=== PATIENT | female | born 1960 | race Caucasian/White ===

== ENCOUNTER 2022-12-07 18:02 | Inpatient (IN) | payer OTHER ==
[~2022-12-07] VITALS: Ht 160 cm; Wt 59.9 kg
[2022-12-07 18:03] VITALS: BP 105/42
--- NOTE | 2022-12-07 18:30 | NUR ---
EMERGENCY TRANSFUSION STARTED WITH O NEG, INFUSING ON LEFT AC.
[2022-12-07 18:34] LABS: BASOPHILS % (AUTO) 0.4 % (0.0-2.0); EOSINOPHILS # (AUTO) 0.3 K/uL (0-0.4); HEMATOCRIT 20.2 % (36-48); LYMPHOCYTES # (AUTO) 2.5 K/uL (2.5-16.5); LYMPHOCYTES % (AUTO) 19.5 % (20.5-51.1); MEAN CORPUSCULAR HEMOGLOBIN 27 pg (27-31); MEAN CORPUSCULAR HGB CONC 34 g/dL (33-37); MONOCYTES # (AUTO) 1.3 K/uL (0.8-1.0); NEUTROPHILS # (AUTO) 8.8 K/uL (1.8-7.7); NEUTROPHILS % (AUTO) 68.1 % (42.2-75.2); PLATELET COUNT (AUTO) 387 K/uL (140-450); RED BLOOD CELL COUNT(AUTO) 2.56 MIL/uL (4.20-5.40); RED CELL DISTRIBUTION WIDTH 23.7 % (11.6-13.7)
[2022-12-07 18:36] LABS: HEMOGLOBIN 6.9 g/dL (12.0-16.0)
--- NOTE | 2022-12-07 18:39 | NUR ---
XRAY AT BEDSIDE
[2022-12-07 18:59] LABS: PROTHROMBIN TIME 10.5 secs (10.8-13.4)
[2022-12-07 19:01] LABS: ANION GAP 12.1 (8-16); CARBON DIOXIDE 31.2 mmol/L (21-32); CREATININE 1.2 mg/dL (0.6-1.3); POTASSIUM 5.3 mmol/L (3.5-5.1); TOTAL BILIRUBIN 0.2 mg/dL (0.0-1.0)
--- NOTE | 2022-12-07 19:15 | NUR ---
BLOOD TRANSFUSION 1 UNIT COMPLETED, STARTED SECOND UNIT, ENDORSED WITH RAIMUNDO ASH
[2022-12-07] MEDS: PANTOPRAZOLE 80 MG in NACL 0.9% 100 ML IVP SCH (20:00)
--- NOTE | 2022-12-07 20:10 | NUR ---
HAD 1 LARGE LIQUID BURGUNDY COLORED STOOL. CLEANSED, RAVEN CAR GIVEN LINENS CHANGED
[2022-12-07] MEDS ORDERED: PANTOPRAZOLE 40 MG INJ VIAL ONE (20:55)
--- NOTE | 2022-12-07 22:00 | NUR ---
RESTING QUIETLY, NO FURTHER STOOL
--- NOTE | 2022-12-08 | NUR ---
RESTING COMFORTABLY WITH EYES CLOSED, RESPIRATIONS REGULAR AND UNLABORED3
--- NOTE | 2022-12-08 02:00 | NUR ---
NO CHANGE IN PT CONDITION, REPOSITIONED FOR COMFORT
[2022-12-08] MEDS ORDERED: DIVA125E1 (03:04)
[2022-12-08] MEDS ORDERED: ALBU0.0912 IH (03:04)
[2022-12-08] MEDS ORDERED: ACET-10509 PO (03:04)
[2022-12-08] MEDS ORDERED: CLOZ100T PO (03:04)
[2022-12-08] MEDS ORDERED: ATOR10TA PO (03:04)
[2022-12-08] MEDS ORDERED: CALC500C17 PO (03:04)
[2022-12-08] MEDS ORDERED: FURO-570 PO (03:06)
[2022-12-08] MEDS ORDERED: PANT40EC PO (03:08)
[2022-12-08] MEDS ORDERED: QUET200T PO (03:13)
--- NOTE | 2022-12-08 04:00 | NUR ---
AWAKE, REPOSITIONED FOR COMFORT.
[2022-12-08] MEDS ORDERED: PANTOPRAZOLE 40 MG INJ VIAL ONE (05:45)
[2022-12-08] MEDS: PANTOPRAZOLE 80 MG in NACL 0.9% 100 ML IVP SCH (05:51)
--- NOTE | 2022-12-08 06:00 | NUR ---
AWAKE AND REPOSITIONED FOR COMFORT
--- NOTE | 2022-12-08 07:23 | NUR ---
REPORT TO MIHIR ANSARI
[2022-12-08 08:14] LABS: BASOPHILS # (AUTO) 0.1 K/uL (0.00-0.22); BASOPHILS % (AUTO) 0.5 % (0.0-2.0); EOSINOPHILS # (AUTO) 0.5 K/uL (0-0.4); EOSINOPHILS % (AUTO) 4.2 % (0.0-4.0); HEMATOCRIT 25.9 % (36-48); LYMPHOCYTES # (AUTO) 2.3 K/uL (2.5-16.5); LYMPHOCYTES % (AUTO) 19.6 % (20.5-51.1); MEAN CORPUSCULAR HEMOGLOBIN 28 pg (27-31); MEAN CORPUSCULAR HGB CONC 35 g/dL (33-37); MEAN CORPUSCULAR VOLUME 81.1 fL (80-94); MONOCYTES # (AUTO) 1.7 K/uL (0.8-1.0); MONOCYTES % (AUTO) 14.3 % (1.7-9.3); NEUTROPHILS # (AUTO) 7.3 K/uL (1.8-7.7); NEUTROPHILS % (AUTO) 61.4 % (42.2-75.2); PLATELET COUNT (AUTO) 364 K/uL (140-450); RED BLOOD CELL COUNT(AUTO) 3.19 MIL/uL (4.20-5.40); RED CELL DISTRIBUTION WIDTH 19.6 % (11.6-13.7); WHITE BLOOD COUNT (AUTO) 11.9 K/uL (4.8-10.8)
[2022-12-08 08:40] LABS: ANION GAP 13.4 (8-16); CARBON DIOXIDE 29.6 mmol/L (21-32)
--- NOTE | 2022-12-08 09:09 | NUR ---
PATIENT HAS BEEN SCREENED AND CATEGORIZED MODERATE NUTRITION RISK. PATIENT WILL BE SEEN WITHIN 3-5 DAYS OF ADMISSION. REVIEWED BY FRANK MIRANDA RD
[2022-12-08] MEDS: DEXT 5% /NACL 0.9% 1,000 ML IV SCH (12:23)
[2022-12-08] MEDS ORDERED: diphenhydrAMINE 50 MG/ML VIAL ONE (12:51)
[2022-12-08] MEDS ORDERED: MIDAZOLAM 2 MG/2 ML VIAL ONE (12:52)
[2022-12-08] MEDS ORDERED: fentaNYL citrate 0.05 MG/ML VIAL ONE (12:52)
--- NOTE | 2022-12-08 12:57 | NUR ---
OR TEAM AT BEDSIDE.
--- NOTE | 2022-12-08 13:02 | NUR ---
Dawit antonio in [facility] - 12/08/22 at 1303 by [email or web address] PT TAKEN TO OR AT THIS TIME, TRANSFER OF CARE.
--- NOTE | 2022-12-08 13:02 | NUR ---
Pt report given to OR. Transfer of care at this time.
[2022-12-08] MEDS ORDERED: POTASSIUM CHLORIDE 10 MEQ TABER PO PRN (13:30)
[2022-12-08] MEDS ORDERED: NACL 0.9% 1,000 ML IV SCH (13:30)
[2022-12-08] MEDS ORDERED: MAG SULF 2000 MG/WATER PREMIX 50 ML IV PRN (13:30)
[2022-12-08] MEDS ORDERED: ONDANSETRON 4 MG/2 ML VIAL IVP PRN (13:30)
[2022-12-08] MEDS ORDERED: ACETAMINOPHEN 325 MG TAB PO PRN (13:30)
[2022-12-08] MEDS ORDERED: MIDAZOLAM 2 MG/2 ML VIAL IVP ONE (13:45)
[2022-12-08] MEDS ORDERED: fentaNYL citrate 0.05 MG/ML VIAL IVP ONE (13:45)
--- NOTE | 2022-12-08 15:30 | NUR ---
RECEIVED REPORT FROM OR NURSE. PT STABLE AN TRANSPORT. PT IS A&OX2-3, HAS A WOUND ON HER SACRUM, IN A T-BAR WITH 2L O2, LUNG SOUNDS HAVE CRACKLES. SHE IS BEDBOUND. HAS AN IV IN HER 20G R HAND INFUSING D5/NS AT 50ML/HR AND A 20G IN HER LAC THAT IS SALINE LOCKED. ALL SAFETY MEASURES IN PLACE AND WILL CONTINUE TO MONITOR.
[2022-12-08 15:34] LABS: PROTHROMBIN TIME 10.6 secs (10.8-13.4)
[2022-12-08 15:54] LABS: CHOL/HDL RATIO 4.4 (1-4.5); FREE T4 (FREE THYROXINE) 0.67 ng/dL (0.76-1.46); THYROID STIMULATING HORMONE 39.91 uIU/mL (0.34-3.74)
[2022-12-08 16:00] VITALS: BP 101/41
--- NOTE | 2022-12-08 16:00 | NUR ---
CALLED ER TO GET REPORT ON THE PATIENT AND NURSE WAS BUSY. I WAS TOLD THEY WOULD CALL ME BACK. NEVER RECEIVED A CALL.
--- NOTE | 2022-12-08 16:34 | NUR ---
DC PLANNING SW OUTREACHED TO [facility] TO GATHER COLLATERAL INFORMATION. SPOKE WITH ZEHRA, ADMIN MARGAUX. ZEHRA REPORTS PT IS IN SUBACUTE CARE WITH CO, ADMISSION DATE; 10/07/22. PT ADMITTED FROM [facility]. ZEHRA REPORTS PT UNABLE TO MAKE DECISIONS AND REPORTS CO [employer] COMMITTEE MAKES MEDICAL DECISIONS ON BEHALF OF PT. ZEHRA REPORTS NO KNOWN FAMILY INVOLVEMENT, AND REPORTS PT IS NOT REGIONAL CENTER CONNECTED. PT IS REPORTED TO TOTAL CARE AND PRIMARILY BEDBOUND AT FACILITY. PT IS REPORTED TO HAVE MENTAL HEALTH HX OF SCHIZOPHRENIA AND IS FOLLOWED BY DR. MORENO, ONCE A MONTH. ZEHRA REPORTS PT IS FOLLOWED DR. ABDI AND FRACTIONATION PLANT SUPERVISOR, DR. QUIROZ AT FACILITY. ZEHRA REPORTS DC PLAN IS FOR PT TO RETURN TO [facility], WHEN MEDICALLY STABLE. Addendum: 12/08/22 at 1635 by Arnold ROGERS Amended: Links added.
[2022-12-08 17:14] LABS: BILIRUBIN,URINE NEGATIVE (NEGATIVE); BLOOD, URINE NEGATIVE (NEGATIVE); COLOR,URINE YELLOW (YELLOW); LEUKOCYTE ESTERASE ,URINE 1+ (NEGATIVE); NITRITE, URINE POSITIVE (NEGATIVE); PH,URINE 5.5 (5.0-9.0); UGLUCOSE NEGATIVE (NEGATIVE)
[2022-12-08] MEDS: SENNA 8.6 MG TAB PO SCH (17:37)
[2022-12-08] MEDS: POLYETHYLENE GLYCOL 17 GM/PKT PO SCH ×2 (17:37→20:37)
[2022-12-08] MEDS: LACTULOSE 20 GM/30 ML UDC PO SCH ×2 (17:37→20:37)
[2022-12-08 18:02] LABS: BARBITURATE, URINE NEGATIVE ng/ml (NEG <=200); BENZODIAZEPINE, URINE NEGATIVE ng/mL (NEG <=200); CANNABINOID, URINE NEGATIVE ng/mL (NEG <=50); COCAINE, URINE NEGATIVE ng/mL (NEG <=300); OPIATE, URINE NEGATIVE ng/mL (NEG <=2000); PHENCYCLIDINE SCREEN,URINE NEGATIVE ng/mL (NEG <=25)
[2022-12-08 18:03] LABS: APPEARANCE,URINE HAZY (CLEAR)
[2022-12-08 19:12] LABS: RBC,URINE NONE SEEN /HPF (0-5); WBC,URINE 20-60 /HPF (0-5)
--- NOTE | 2022-12-08 19:15 | NUR ---
ENDORSED PT TO LIVE OUT NANNY NURSE STEVENSON FOR CONTINUITY OF CARE. PT STABLE.
--- NOTE | 2022-12-08 19:20 | NUR ---
RECEIVED REPORT FROM AM RN. PATIENT IS ASLEEP, OPENS EYES UPON VERBAL STIMULI. DENIES PAIN. NO S/SX OF ACUTE RESPIRATORY DISTRESS NOTED. G-TUBE IN PLACE, VERIFIED PLACEMENT VIA AUSCULTATION, NO RESIDUAL NOTED. SKIN WARM AND DRY TO TOUCH. IVF INFUSING ORDERED. BED IN THE LOWEST AND LOCKED POSITION FOR SAFETY, CALL LIGHT IN REACH.
[2022-12-08 20:00] VITALS: BP 129/57
--- NOTE | 2022-12-08 20:37 | NUR ---
G TUBE FEEDING OF JEVITY 1.2 200 ML BOLUS GIVEN ORDERED. DUE MEDICATIONS GIVEN. HEAD OF THE BED ELEVATED.
[2022-12-08] MEDS ORDERED: DOCUSATE SODIUM 100 MG GELCAP PO SCH (21:00)
--- NOTE | 2022-12-08 21:39 | NUR ---
SPOKE WITH JOE MARINE TECHNICIAN FROM [facility] TO ASK NEXT OF KIN OR ANYONE AUTHORIZED TO GIVE CONSENT FOR A PROCEDURE. PER JOE, NO INFORMATION AND TO CALL BACK IN AM AND LOOK FOR [facility].
--- NOTE | 2022-12-08 21:45 | NUR ---
REPOSITIONED PT, MADE COMFORTABLE IN BED.
[2022-12-09] VITALS: BP 118/55
--- NOTE | 2022-12-09 00:58 | NUR ---
PATIENT HAD A LARGE WATERY BLOODY STOOL, CLEANED PATIENT. REPOSITIONED FOR COMFORT. TRACH AND ORAL SUCTIONING DONE, ORAL CARE RENDERED.
--- NOTE | 2022-12-09 02:00 | NUR ---
REPOSITIONED PT. MADE COMFORTABLE, HEAD OF THE BED.
[2022-12-09 04:00] VITALS: BP 107/43
--- NOTE | 2022-12-09 04:00 | NUR ---
VITAL SIGNS TAKEN AND DOCUMENTED. NO S/SX OF PAIN NOR DISCOMFORT.
[2022-12-09 05:45] LABS: BASOPHILS # (AUTO) 0.1 K/uL (0.00-0.22); BASOPHILS % (AUTO) 0.7 % (0.0-2.0); EOSINOPHILS # (AUTO) 0.9 K/uL (0-0.4); EOSINOPHILS % (AUTO) 8.3 % (0.0-4.0); HEMATOCRIT 25.6 % (36-48); HEMOGLOBIN 8.9 g/dL (12.0-16.0); LYMPHOCYTES # (AUTO) 1.7 K/uL (2.5-16.5); LYMPHOCYTES % (AUTO) 16.2 % (20.5-51.1); MEAN CORPUSCULAR HEMOGLOBIN 28 pg (27-31); MEAN CORPUSCULAR HGB CONC 35 g/dL (33-37); MEAN CORPUSCULAR VOLUME 81.8 fL (80-94); MONOCYTES # (AUTO) 1.4 K/uL (0.8-1.0); MONOCYTES % (AUTO) 13.4 % (1.7-9.3); NEUTROPHILS # (AUTO) 6.6 K/uL (1.8-7.7); NEUTROPHILS % (AUTO) 61.4 % (42.2-75.2); PLATELET COUNT (AUTO) 392 K/uL (140-450); RED BLOOD CELL COUNT(AUTO) 3.13 MIL/uL (4.20-5.40); RED CELL DISTRIBUTION WIDTH 19.6 % (11.6-13.7); WHITE BLOOD COUNT (AUTO) 10.7 K/uL (4.8-10.8)
--- NOTE | 2022-12-09 06:14 | NUR ---
PATIENT IS ASLEEP. NO DISTRESS NOTED. ALL NEEDS ATTENDED TO. SAFETY PRECAUTIONS MAINTAINED DURING THE SHIFT, CALL LIGHT REMAINS WITHIN REACH.
[2022-12-09 06:38] LABS: ANION GAP 11.7 (8-16); CARBON DIOXIDE 31.8 mmol/L (21-32); CREATININE 0.9 mg/dL (0.6-1.3); POTASSIUM 3.5 mmol/L (3.5-5.1)
[2022-12-09 07:20] LABS: MAGNESIUM 2.4 mg/dL (1.8-2.4); PHOSPHORUS 3.7 mg/dL (2.5-4.9)
[2022-12-09 08:00] VITALS: BP 131/58
[2022-12-09] MEDS ORDERED: PANTOPRAZOLE 40 MG INJ VIAL IVP SCH (09:00)
[2022-12-09] MEDS ORDERED: DOCUSATE 100 MG/10 ML UDC GT SCH (09:00)
[2022-12-09] MEDS: POLYETHYLENE GLYCOL 17 GM/PKT PO SCH ×2 (09:38→13:00)
[2022-12-09] MEDS: LACTULOSE 20 GM/30 ML UDC PO SCH ×3 (09:38→14:00)
[2022-12-09] MEDS: SENNA 8.6 MG TAB PO SCH ×2 (09:38→13:00)
[2022-12-09] MEDS: HYDROcodone/APAP 7.5/325 MG 1 TAB PO PRN ×2 (09:39→22:35)
--- NOTE | 2022-12-09 10:05 | NUR ---
SKIN ASSESSMENT DONE ON THIS 62 Y/O PT. WITH A HISTORY OF CHRONIC RESPIRATORY FAILURE WITH TRACH, DIABETES, SCHIZOPHRENIA. PT. ADMIITED WITH INITIAL DX OF GI BLEED AND HYPOTENSION. PT. ADMITTED WIYH MULTIPLE PRESSURE INJURIES. SKIN IS WARM AND MOIST, BILATERAL LOWER EXTREMITY +2 EDEMA. DORSAL PEDAL PULSES PRESENT AND NORMAL. INCONTINENT BOWEL AND BLADDER, LARGE AMOUNT BLOODY STOOL OUT PUT OBSERVED. PRIMARY RN MADE AWARE OF. WOUND CARE POC DISCUSSED WITH PRIMARY RN. INFORM TO DR. OLGUIN RECOMMENDATION FOR SACRAL DEBRIDEMENT. INTEGUMENTARY: -ORAL MEMBRANE PINK INTACT -TRACH SITE RAVEN STOMA SKIN DRY AND CLEAN. SKIN INTACT. -PRESSURE INJURY STAGE 2 3X4CM SUPERFICIAL DEPTH, WOUND BED 100% PINK, DRY, NO ODOR, RAVEN WOUND SKIN INTACT, HAIRLY -PRESSURE INJURY UN-STAGEABLE SACRALCOCCYX INFECTED WOUND, WOUND BED [id number] 100% YELLOW, BROWN SLOUGH TISSUE, TUNNEL 2CM DEEP ODOR, RAVEN WOUND SKIN WITH KIN, SURROUNDING NON-BLANCHABLE REDNESS INDICATED FURTHER DAMAGE -PRESSURE INJURY UN-STAGEABLE TO RIGHT HEEL 1.5X1CM 100% BLACK ESCHAR TISSUE, RAVEN WOUND CKIN NON-BLANCHABLE REDNESS, MUSHY, FURTHER DAMAGE INDICATED -RIGHT WRIST SKIN TEAR 0.5X1CM SUPERFICIAL DEPTH, MOIST, NO ODOR, RAVEN-WOUND SKIN DRY INTACT. RECOMMENDATIONS: -WOUND CX TO SACRALCOCCYX -SURGEON CONSULT FOR SACRAL DEBRIDEMENT -CLEANSE SACRALCOCCYX WOUND WITH NS, PAT DRY, APPLY THERAHONEY GEL WITH OL EMULSION DRESSING PACK FROM TUNNEL WOUND AND COVER TO WOUND BED, APPLY Z GUARD TO RAVEN-WOUND SKIN AND COVER WITH ABD PAD AND SECURE WITH TAPE CHANGE DAILY AND PRN IF SOILING -APPLY HYDROCOLLOID DRESSING TO OCCIPITAL Q3D AND PRN IF SOILING -RIGHT HEEL WOUND PAINT WITH BETADINE SOLUTION BID AND ROMIE, APPLY HEEL PROTECTOR WITH OFFLOADING -APPLY STERISTRIP TO RIGHT WRIST SKIN TEAR ROMIE -POSITIONING: TURN AND REPOSITION PATIENT Q 2H OR SOONER USE PILLOWS TO KEEP BONY PROMINENCES FROM DIRECT CONTACT WITH SURFACES USE REPOSITIONING WEDGES TO PROVIDE 30-DEGREE ANGLE FOR SIDE LYING POSITIONS OFFLOADING OR FOAM DRESSING TO ALL TUBING TO PREVENT MEDICAL DEVICES RELATED PRESSURE INJURY -RE-EVALUATING AND MANAGING INCONTINENCE MONITOR SKIN CONDITION DURING POSITION CHANGE DO NOT MASSAGE REDNESS, BONY PROMINENCES FREQUENT RAVEN-CARE AND PROVIDE BARRIER CREAMS PRN IF SOILING MOISTURE CONTROL BY OFFER BED BUSCH/URINAL /ABSORBENT PAD TO WICK AND HOLD MOISTURE KEEP SKIN DRY AND PROTECT FROM FRICTION -MANAGE FRICTION/SHEAR/MOBILITY KEEP HOB AT THE LOWEST LEVEL OF ELEVATION NO MORE THAN 30-DEGREE UNLESS OTHERWISE CONTRAINDICATED USE LIFT SHEET OR TRANSFER DEVICE TO MOVE PATIENT AND PREVENT LATERAL SHEER. PROTECT HEELS, ELBOWS BONY PROMINENCES WITH SKIN BERRIES OR FOAM DRESSING IF EXPOSED TO FRICTION OFFLOAD BILATERAL HEELS BY PLACING PILLOWS UNDER CALVES AT ALL TIMES, UNLESS OTHERWISE CONTRAINDICATED -PRESSURE REDISTRIBUTION SURFACE THERAPY EDUARDO MATTRESS -NUTRITION: PLEASE FOLLOW RD RECOMMENDATIONS AND OFFER NUTRITION SUPPLEMENTS IF ORDERED.
[2022-12-09] MEDS ORDERED: HYDROCOLLOID DRESSING TP PRN (11:55)
[2022-12-09] MEDS ORDERED: THERAHONEY GEL 42.5 GM TP PRN (11:55)
[2022-12-09 12:00] VITALS: BP 101/59
[2022-12-09] MEDS: GAUZE TP SCH (13:00)
[2022-12-09] MEDS: THERAHONEY GEL 42.5 GM TP SCH (13:00)
[2022-12-09] MEDS: HYDROCOLLOID DRESSING TP SCH (13:00)
--- NOTE | 2022-12-09 13:00 | NUR ---
PATIENT WAS TAKEN TO OR FOR COLONOSCOPY ACCOMPANIED BY OR STAFF AND RT.
[2022-12-09] MEDS ORDERED: fentaNYL citrate 0.05 MG/ML VIAL ONE (13:18)
[2022-12-09] MEDS ORDERED: diphenhydrAMINE 50 MG/ML VIAL ONE (13:18)
[2022-12-09] MEDS ORDERED: MIDAZOLAM 2 MG/2 ML VIAL ONE (13:18)
[2022-12-09] MEDS: DEXT 5% /NACL 0.9% 1,000 ML IV SCH (14:00)
--- NOTE | 2022-12-09 14:00 | NUR ---
[facility] BACK [facility].
[2022-12-09] MEDS ORDERED: MIDAZOLAM 2 MG/2 ML VIAL IVP ONE (14:05)
[2022-12-09] MEDS ORDERED: fentaNYL citrate 0.05 MG/ML VIAL IVP ONE (14:05)
[2022-12-09] MEDS ORDERED: POTASSIUM CHLORIDE 20% 40 MEQ/15 ML UDC GT SCH (14:30)
[2022-12-09 16:00] VITALS: BP 127/60
[2022-12-09] MEDS: FERROUS GLUCONATE 324 MG TAB PO SCH (16:27)
--- NOTE | 2022-12-09 19:30 | NUR ---
RECEIVED PT IN BED WITH EYES CLOSED. NO S/SX OF PAIN NOR DISCOMFORT. NO S/SX OF ACUTE RESPIRATORY DISTRESS NOTED. SKIN WARM AND DRY TO TOUCH. G-TUBE PLACEMENT VERIFIED VIA AUSCULTATION, NO RESIDUAL, HEAD OF THE BED ELEVATED. SAFETY. ETIENNE CATHETER DRAINIGN YELLOW URINE BY GRAVITY. SAFETY PRECAUTION IN PLACE, CALL LIGHT IN REACH.
[2022-12-09 20:00] VITALS: BP 122/52
--- NOTE | 2022-12-09 22:06 | NUR ---
REPOSITIONED PT. HEAD OF THE BED ELEVATED.
[2022-12-10] VITALS: BP 117/45
--- NOTE | 2022-12-10 00:10 | NUR ---
NO RESIDAUL FROM G TUBE, HEAD OF THE BED ELEVATED. REPOSITIONED PT.
[2022-12-10] MEDS: GAUZE TP SCH ×2 (01:38→13:09)
--- NOTE | 2022-12-10 02:14 | NUR ---
ROUNDING DONE. PT ASLEEP. NO S/SX OF PAIN NOR DISCOMFORT. CALL LIGHT IN REACH.
[2022-12-10 04:00] VITALS: BP 122/52
[2022-12-10] MEDS: DEXT 5% /NACL 0.9% 1,000 ML IV SCH (04:34)
[2022-12-10] MEDS: LEVOTHYROXINE 0.1 MG TAB PO SCH (05:32)
[2022-12-10 05:35] LABS: BASOPHILS # (AUTO) 0.1 K/uL (0.00-0.22); BASOPHILS % (AUTO) 0.5 % (0.0-2.0); EOSINOPHILS # (AUTO) 0.9 K/uL (0-0.4); EOSINOPHILS % (AUTO) 8.4 % (0.0-4.0); HEMATOCRIT 24.8 % (36-48); HEMOGLOBIN 8.3 g/dL (12.0-16.0); MEAN CORPUSCULAR HEMOGLOBIN 28 pg (27-31); MEAN CORPUSCULAR HGB CONC 34 g/dL (33-37); MEAN CORPUSCULAR VOLUME 83.1 fL (80-94); MONOCYTES # (AUTO) 1.6 K/uL (0.8-1.0); NEUTROPHILS # (AUTO) 6.6 K/uL (1.8-7.7); NEUTROPHILS % (AUTO) 59.1 % (42.2-75.2); PLATELET COUNT (AUTO) 421 K/uL (140-450); RED BLOOD CELL COUNT(AUTO) 2.98 MIL/uL (4.20-5.40); WHITE BLOOD COUNT (AUTO) 11.2 K/uL (4.8-10.8)
[2022-12-10 06:12] LABS: MAGNESIUM 1.9 mg/dL (1.8-2.4); PHOSPHORUS 3.3 mg/dL (2.5-4.9)
[2022-12-10 06:16] LABS: ANION GAP 9.4 (8-16); CREATININE 0.9 mg/dL (0.6-1.3); POTASSIUM 3.4 mmol/L (3.5-5.1)
--- NOTE | 2022-12-10 06:24 | NUR ---
PATIENT IS ASLEEP. ALL NEEDS ATTENDED TO. NO S/SX OF DISTRESS NOTED. SAFETY PRECAUTIONS IN PLACE, CALL LIGHT IN REACH.
[2022-12-10 08:00] VITALS: BP 124/39
[2022-12-10] MEDS: LACTULOSE 20 GM/30 ML UDC PO SCH (08:42)
[2022-12-10] MEDS: FERROUS GLUCONATE 324 MG TAB PO SCH ×2 (08:42→18:15)
[2022-12-10 12:00] VITALS: BP 127/40
[2022-12-10] MEDS ORDERED: POTASSIUM CHLORIDE 20% 40 MEQ/15 ML UDC GT PRN (12:50)
[2022-12-10] MEDS: THERAHONEY GEL 42.5 GM TP SCH (13:09)
[2022-12-10 16:00] VITALS: BP 115/36
--- NOTE | 2022-12-10 16:47 | NUR ---
12/10/22 RD INITIAL ASSESSMENT COMPLETED PLEASE REFER TO NUTRITION ASSESSMENT UNDER CARE ACTIVITY FOR ESTIMATED NUTRITIONAL NEEDS. 1. RECOMMEND GLUCERNA 1.2 @ 35 ML/HR, FWF 100 ML Q4H -START AT 10 ML, AND INCREASE BY 10 ML Q4H UNTIL GOAL RATE IS REACHED, TOLERATED 2. RECOMMEND ADDING PROSOURCE BID (PROVIDES 120 KCAL AND 30 GRAM PROTEIN DAILY) - WITH PROSOURCE BID, PT WILL RECEIVE 1128 KCAL, 80 G PROTEIN, AND 1276 ML FREE WATER, AND WILL MEET 86% ESTIMATED ENERGY NEEDS AND 100% ESTIMATED PROTEIN NEEDS. 3. RD TO FOLLOW-UP 3-5 DAYS, MODERATE RISK REVIEWED BY FRANK MIRANDA RD
[2022-12-10] MEDS: HYDROcodone/APAP 7.5/325 MG 1 TAB PO PRN (18:26)
--- NOTE | 2022-12-10 19:15 | NUR ---
RECEIVED REPORT FROM DAY NURSE. PT LYING SUPINBE IN BED, ETIENNE CATHETER DRAINING YELLOW URINE, PT ON G-TUBE, JEVITY 1.2 RUNNING AT 30/HR. RESPIRATIONS EVEN AND UNLABORED, PT APPEARED STABLE IN NO APPARENT DISTRESS. WILL CONT TO MONITOR.
--- NOTE | 2022-12-10 20:45 | NUR ---
PT SEEN BY MD DR CARTER, ORDERED NPO AFTER MIDNIGHT, PT TO GO TO OR TOMORROW MORNING FOR DEBRIDEMENT SACROCOCCYX DECUBITUS GANGRENE INFECTED WOUND. CONSENT TO BE OBTAINED IN AM FROM CONSERVATOR.
--- NOTE | 2022-12-10 22:35 | NUR ---
RECEIVED CALL FROM DR RUTH STEARNS, GAVE TELEPHONE ORDER FOR ECHOCARDIOGRAM, CBC, CMP IN THE MORNING. ORDER NOTED AND CARRIED OUT. WILL CONT TO MONITOR.
[2022-12-10 23:24] VITALS: BP 115/40
[2022-12-11] MEDS: DEXT 5% /NACL 0.9% 1,000 ML IV SCH (00:53)
[2022-12-11] MEDS: GAUZE TP SCH ×2 (01:15→13:00)
[2022-12-11 05:21] VITALS: BP 145/66
[2022-12-11] MEDS: LEVOTHYROXINE 0.1 MG TAB PO SCH (05:54)
[2022-12-11 06:08] LABS: HEMATOCRIT 22.1 % (36-48); HEMOGLOBIN 7.3 g/dL (12.0-16.0); MEAN CORPUSCULAR HEMOGLOBIN 28 pg (27-31); MEAN CORPUSCULAR HGB CONC 33 g/dL (33-37); MEAN CORPUSCULAR VOLUME 82.8 fL (80-94); PLATELET COUNT (AUTO) 465 K/uL (140-450); RED BLOOD CELL COUNT(AUTO) 2.67 MIL/uL (4.20-5.40); RED CELL DISTRIBUTION WIDTH 20.2 % (11.6-13.7); WHITE BLOOD COUNT (AUTO) 11.2 K/uL (4.8-10.8)
--- NOTE | 2022-12-11 06:44 | NUR ---
PT CLEANED UP, GIVEN AM CARE, GIVEN DRESSING CHANGE AND REPOSITIONED.
[2022-12-11 07:05] LABS: ALBUMIN 1.8 g/dL (3.4-5.0); ANION GAP 11.1 (8-16); CARBON DIOXIDE 26.7 mmol/L (21-32); CREATININE 0.8 mg/dL (0.6-1.3); POTASSIUM 3.8 mmol/L (3.5-5.1); TOTAL BILIRUBIN 0.2 mg/dL (0.0-1.0)
--- NOTE | 2022-12-11 07:05 | NUR ---
END OF SHIFT REPORT GIVEN TO DAY NURSE FOR CONTINUITY OF CARE. PT STABLE AND SLEEPING.
--- NOTE | 2022-12-11 07:23 | NUR ---
got report from night nurse pt is sleeping, no sob.[email or web address]
[2022-12-11 07:30] LABS: MAGNESIUM 1.7 mg/dL (1.8-2.4); PHOSPHORUS 3.5 mg/dL (2.5-4.9)
[2022-12-11 08:00] VITALS: BP 133/58
[2022-12-11] MEDS: LACTULOSE 20 GM/30 ML UDC PO SCH (08:42)
[2022-12-11] MEDS: FERROUS GLUCONATE 324 MG TAB PO SCH ×2 (08:52→17:00)
[2022-12-11 09:20] LABS: BASOPHILS # (AUTO) 0.1 K/uL (0.00-0.22); BASOPHILS % (AUTO) 0.8 % (0.0-2.0); BASOPHILS % (MANUAL) 0 % (0-2); EOSINOPHILS # (AUTO) 0.4 K/uL (0-0.4); EOSINOPHILS % (AUTO) 3.8 % (0.0-4.0); EOSINOPHILS % (MANUAL) 2 % (0-4); LYMPHOCYTES % (AUTO) 26.6 % (20.5-51.1); LYMPHOCYTES % (MANUAL) 20 % (20-46); MONOCYTES # (AUTO) 1.5 K/uL (0.8-1.0); MONOCYTES % (AUTO) 13.4 % (1.7-9.3); MONOCYTES % (MANUAL) 10 % (5-12); NEUTROPHILS # (AUTO) 6.2 K/uL (1.8-7.7); NEUTROPHILS % (AUTO) 55.4 % (42.2-75.2); PLATELET COUNT,MANUAL 465 K/uL (150-450)
[2022-12-11 12:00] VITALS: BP 137/56
[2022-12-11] MEDS: THERAHONEY GEL 42.5 GM TP SCH (13:00)
[2022-12-11] MEDS ORDERED: LIDOCAINE MPF 1% 10 ML ONE (14:29)
[2022-12-11] MEDS ORDERED: LIDOCAINE MPF 1% 5 ML ONE (14:30)
[2022-12-11 16:00] VITALS: BP 161/61
--- NOTE | 2022-12-11 17:58 | NUR ---
HELD IRON C\0 SURGERY AT BED SIDE, PT SWEATY CLEANED REPOSITIONED FOR COMFORT. SUCTIONED.[email or web address]
--- NOTE | 2022-12-11 19:15 | NUR ---
RECEIVED REPORT FROM OUTGOING DAY NURSE. PT IN BED RESTING, PREPS FOR DEBRIDEMENT OF SACRAL WOUND IN PLACE. PT STILL NPO, IV FLUIDS RUNNING WHILE G-TUBE FEEDING ON HOLD. YELLOW URINE DRAING FROM ETIENNE CATHETER. PT APPEARED RELAX AND IN NO APPARENT DISTRESS AT THIS TIME.
--- NOTE | 2022-12-11 21:00 | NUR ---
RECEIVED REPORT PT IS NPO FROM DAY NURSE DUE TO PENDING PROCEDURE. PROCEDURE POSTPONED TO WEDNESDAY. PT RESTARTED G-TUBE FEEDING, GLUCERNA 1.2, PT G-TUBE FLUSHED AND STARTED AT 30/HR.
--- NOTE | 2022-12-11 23:00 | NUR ---
NOTED PT IV LINE LEAKING. RE INSERTED G 20 AT LH, IV INFUSING IV FLUIDS. PT REPOSITIONED, GIVEN RAVEN CARE. WILL CONT MONITORING.
[2022-12-12 02:36] VITALS: BP 133/62
[2022-12-12] MEDS: GAUZE TP SCH ×2 (03:29→13:46)
[2022-12-12 06:12] LABS: BASOPHILS # (AUTO) 0.1 K/uL (0.00-0.22); BASOPHILS % (AUTO) 0.6 % (0.0-2.0); EOSINOPHILS # (AUTO) 0.2 K/uL (0-0.4); EOSINOPHILS % (AUTO) 1.6 % (0.0-4.0); HEMATOCRIT 23.2 % (36-48); HEMOGLOBIN 7.8 g/dL (12.0-16.0); LYMPHOCYTES # (AUTO) 3.5 K/uL (2.5-16.5); LYMPHOCYTES % (AUTO) 26.2 % (20.5-51.1); MEAN CORPUSCULAR HEMOGLOBIN 28 pg (27-31); MEAN CORPUSCULAR HGB CONC 34 g/dL (33-37); MEAN CORPUSCULAR VOLUME 82.6 fL (80-94); MONOCYTES # (AUTO) 1.4 K/uL (0.8-1.0); MONOCYTES % (AUTO) 10.7 % (1.7-9.3); NEUTROPHILS # (AUTO) 8.2 K/uL (1.8-7.7); NEUTROPHILS % (AUTO) 60.9 % (42.2-75.2); PLATELET COUNT (AUTO) 501 K/uL (140-450); RED BLOOD CELL COUNT(AUTO) 2.81 MIL/uL (4.20-5.40); RED CELL DISTRIBUTION WIDTH 20.1 % (11.6-13.7); WHITE BLOOD COUNT (AUTO) 13.4 K/uL (4.8-10.8)
[2022-12-12 06:50] LABS: MAGNESIUM 1.6 mg/dL (1.8-2.4); PHOSPHORUS 4.2 mg/dL (2.5-4.9)
[2022-12-12 06:52] LABS: ANION GAP 13.2 (8-16); CARBON DIOXIDE 26.8 mmol/L (21-32); CREATININE 0.8 mg/dL (0.6-1.3)
[2022-12-12] MEDS: DEXT 5% /NACL 0.9% 1,000 ML IV SCH ×2 (07:07→16:20)
[2022-12-12] MEDS: LEVOTHYROXINE 0.1 MG TAB PO SCH (07:08)
--- NOTE | 2022-12-12 07:19 | NUR ---
END OF SHIFT REPORT GIVEN TO WENDY CARL NURSE. PT ASLEEP IN BED, FACIAL EXPRESSIONS RELAXED AND CALM. EMPTIED 400ML CLOUDY URINE. PT CLEANED UP, GIVEN AM CARE, RAVEN CARE, ETIENNE CATHETER CARE. PT STABLE, IN NO APPARENT DISTRESS.
[2022-12-12 08:00] VITALS: BP 119/47
[2022-12-12] MEDS: FERROUS GLUCONATE 324 MG TAB PO SCH ×2 (08:58→18:05)
[2022-12-12] MEDS: LACTULOSE 20 GM/30 ML UDC PO SCH (08:59)
[2022-12-12 13:16] VITALS: BP 124/51
[2022-12-12] MEDS: HYDROcodone/APAP 7.5/325 MG 1 TAB PO PRN (13:18)
[2022-12-12] MEDS: HYDROCOLLOID DRESSING TP SCH (13:46)
[2022-12-12] MEDS: THERAHONEY GEL 42.5 GM TP SCH (13:47)
[2022-12-12 16:00] VITALS: BP 161/61
--- NOTE | 2022-12-12 19:35 | NUR ---
RECEIVED PATIENT FROM AM NURSE FOR CONTINUITY OF CARE. PT IS STABLE
[2022-12-12 20:00] VITALS: BP 123/56
[2022-12-13] VITALS: BP 125/56
[2022-12-13] MEDS: GAUZE TP SCH ×2 (00:53→12:45)
--- NOTE | 2022-12-13 03:00 | NUR ---
CLEANED AND REPOSITIONED THE PATIENT, DRESSING CHANGED ON COCCYX AREA, PATIENT IN NO DISTRESS
[2022-12-13 04:00] VITALS: BP 131/66
[2022-12-13] MEDS: LEVOTHYROXINE 0.1 MG TAB PO SCH (05:45)
[2022-12-13 06:12] LABS: BASOPHILS # (AUTO) 0.1 K/uL (0.00-0.22); BASOPHILS % (AUTO) 0.8 % (0.0-2.0); EOSINOPHILS # (AUTO) 0.5 K/uL (0-0.4); EOSINOPHILS % (AUTO) 4.7 % (0.0-4.0); HEMATOCRIT 22.4 % (36-48); HEMOGLOBIN 7.6 g/dL (12.0-16.0); LYMPHOCYTES # (AUTO) 3.5 K/uL (2.5-16.5); LYMPHOCYTES % (AUTO) 33.8 % (20.5-51.1); MEAN CORPUSCULAR HEMOGLOBIN 28 pg (27-31); MEAN CORPUSCULAR HGB CONC 34 g/dL (33-37); MEAN CORPUSCULAR VOLUME 82.8 fL (80-94); MONOCYTES # (AUTO) 1.2 K/uL (0.8-1.0); MONOCYTES % (AUTO) 11.3 % (1.7-9.3); NEUTROPHILS # (AUTO) 5.1 K/uL (1.8-7.7); NEUTROPHILS % (AUTO) 49.4 % (42.2-75.2); PLATELET COUNT (AUTO) 513 K/uL (140-450); RED CELL DISTRIBUTION WIDTH 19.8 % (11.6-13.7); WHITE BLOOD COUNT (AUTO) 10.4 K/uL (4.8-10.8)
[2022-12-13 06:29] LABS: ANION GAP 11.9 (8-16); CREATININE 0.8 mg/dL (0.6-1.3); POTASSIUM 3.9 mmol/L (3.5-5.1)
[2022-12-13 06:38] LABS: MAGNESIUM 1.8 mg/dL (1.8-2.4); PHOSPHORUS 4.2 mg/dL (2.5-4.9)
--- NOTE | 2022-12-13 07:19 | NUR ---
ENDORSED PT TO AM NURSE FOR CONTINUITY OF CARE. PT IS STABLE
[2022-12-13 08:00] VITALS: BP 117/49
--- NOTE | 2022-12-13 08:18 | NUR ---
PT WAS TACHYPNIC - RR 28- AND HR WA 90. TUBING FILLED WITH SECRETIONS. DEEP SUCTIONING PERFORMED THROUGH TRACH. REMOVED LARGE AMOUNT OF THICK, CREAMY-WHITE SECRETIONS. RR DECREASED TO 18 AND PT SEEMED MORE COMFORTABLE.
[2022-12-13] MEDS: LACTULOSE 20 GM/30 ML UDC PO SCH (09:06)
[2022-12-13] MEDS: FERROUS GLUCONATE 324 MG TAB PO SCH ×2 (09:06→17:18)
[2022-12-13 12:00] VITALS: BP 129/62
[2022-12-13] MEDS: DEXT 5% /NACL 0.9% 1,000 ML IV SCH (12:28)
[2022-12-13] MEDS: THERAHONEY GEL 42.5 GM TP SCH (12:45)
[2022-12-13] MEDS: MEROPENEM 1,000 MG in NACL 0.9% 50 ML IV SCH ×2 (15:46→20:46)
[2022-12-13 16:00] VITALS: BP 124/48
--- NOTE | 2022-12-13 19:30 | NUR ---
RECEIVED PT FROM MORNING SHIFT NURSE. PT IS AOX2-3 AND BEDBOUND. PT IS T-BAR WITH 6L AND HAS G-TUBE RUNNING WITH GLUCERNA 1.2 AT 35ML/HR WITH WATER FLUSH OF 100 EVERY 4 HRS. PT WILL BE ON NPO AT MIDNIGHT DUE TO WOUND DEBRIDEMENT CEE. PT HAS ETIENNE CATHETER AND HAS IV ON LEFT WRIST GAUGE 22 RUNNING WITH D5NS AT 50ML/HR. PT HAS STAGE 4 SACRAL WOUND AND SUPERFICIAL WOUND ON RIGHT HEEL. NO S/S OF RESPIRATORY DISTRESS NOTED. ALL SAFETY MEASURES IMPLEMENTED. BED IN LOW POSITION, BED WHEELS ON LOCK AND CALL LIGHT WITHIN REACH.
[2022-12-13 20:00] VITALS: BP 128/53
--- NOTE | 2022-12-13 20:46 | NUR ---
SCHEDULED AND PRESCRIBED MEDICATION WAS GIVEN TO PT PER MD ORDER. ALL SAFETY MEASURES IMPLEMENTED. BED IN LOW POSITION, BED WHEELS ON LOCK AND CALL LIGHT WITHIN REACH.
--- NOTE | 2022-12-13 21:50 | NUR ---
RECEIVED CALL FROM DR. MIRANDA REGARDING PT'S LABS. DR. MIRANDA WANTS TO ORDER CHEMISTRY AND CBC CEE AT 5AM AND HE WANTS TO NOTIFY THE PRIMARY DOCTOR FOR THE BLOOD TRANSFUSION DUE TO PT'S HEMOGLOBIN IS 7.6. ORDER WAS MADE AND CARRIED OUT.
--- NOTE | 2022-12-13 22:00 | NUR ---
NOTIFIED DR. BLANCO THAT DR. MIRANDA WANTS BLOOD TRANSFUSION ORDER DUE TO HEMOGLOBIN OF 7.[address] BLANCO ORDER 1 UNIT OF PRBC. ORDER WAS MADE AND CARRIED OUT.
[2022-12-14] VITALS: BP 132/48
--- NOTE | 2022-12-14 00:30 | NUR ---
STARTED BLOOD TRANSFUSION TO THE PT WITH THE PRE VS OF OF BP-132/48, P-92, RR-18 AND T-97.3 ALL SAFETY MEASURES IMPLEMENTED. ALL SAFETY MEASURES IMPLEMENTED. BED IN LOW POSITION, BED WHEELS ON LOCK AND CALL LIGHT WITHIN REACH.
[2022-12-14] MEDS: GAUZE TP SCH ×2 (01:18→13:00)
--- NOTE | 2022-12-14 02:00 | NUR ---
PT IS SLEEPING, WHILE ON GOING OF BLOOD TRANSFUSION. CHEST RISE AND FALL SYMMETRICALLY NOTED. RESPIRATION IS EVEN AND UNLABORED. ALL SAFETY MEASURES IMPLEMENTED. BED IN LOW POSITION, BED WHEELS ON LOCK AND CALL LIGHT WITHIN REACH.
--- NOTE | 2022-12-14 03:00 | NUR ---
END OF BLOOD TRANSFUSION WITH VS; BP-129/55, P-88 RR-19 AND TEMP OF 97.9. CHEST. NO S/S OF RESPIRATORY DISTRESS NOTED SATING AT 98%. ALL SAFETY MEASURES IMPLEMENTED. BED IN LOW POSITION, BED WHEELS ON LOCK AND CALL LIGHT WITHIN REACH.
[2022-12-14 04:00] VITALS: BP 126/46
[2022-12-14] MEDS: MEROPENEM 1,000 MG in NACL 0.9% 50 ML IV SCH ×3 (04:47→20:44)
[2022-12-14] MEDS: LEVOTHYROXINE 0.1 MG TAB PO SCH (05:34)
[2022-12-14 05:57] LABS: BASOPHILS # (AUTO) 0.1 K/uL (0.00-0.22); BASOPHILS % (AUTO) 0.8 % (0.0-2.0); EOSINOPHILS # (AUTO) 0.3 K/uL (0-0.4); EOSINOPHILS % (AUTO) 2.8 % (0.0-4.0); HEMATOCRIT 26.1 % (36-48); HEMOGLOBIN 8.9 g/dL (12.0-16.0); LYMPHOCYTES # (AUTO) 3.1 K/uL (2.5-16.5); LYMPHOCYTES % (AUTO) 30.9 % (20.5-51.1); MEAN CORPUSCULAR HEMOGLOBIN 29 pg (27-31); MEAN CORPUSCULAR HGB CONC 34 g/dL (33-37); MEAN CORPUSCULAR VOLUME 84.2 fL (80-94); MONOCYTES # (AUTO) 1.1 K/uL (0.8-1.0); MONOCYTES % (AUTO) 10.9 % (1.7-9.3); NEUTROPHILS # (AUTO) 5.5 K/uL (1.8-7.7); NEUTROPHILS % (AUTO) 54.6 % (42.2-75.2); PLATELET COUNT (AUTO) 515 K/uL (140-450); RED BLOOD CELL COUNT(AUTO) 3.09 MIL/uL (4.20-5.40); RED CELL DISTRIBUTION WIDTH 19.4 % (11.6-13.7); WHITE BLOOD COUNT (AUTO) 10.1 K/uL (4.8-10.8)
[2022-12-14 06:07] LABS: ANION GAP 12.5 (8-16); CARBON DIOXIDE 27.2 mmol/L (21-32); CREATININE 0.8 mg/dL (0.6-1.3); POTASSIUM 3.7 mmol/L (3.5-5.1)
--- NOTE | 2022-12-14 07:08 | NUR ---
PT IS STABLE. ENDORSED PT TO MORNING SHIFT NURSE FOR CONTINUITY OF CARE.
[2022-12-14 08:00] VITALS: BP 133/61
[2022-12-14] MEDS: FERROUS GLUCONATE 324 MG TAB PO SCH ×2 (08:00→17:20)
[2022-12-14] MEDS: LACTULOSE 20 GM/30 ML UDC PO SCH (09:00)
[2022-12-14] MEDS: DEXT 5% /NACL 0.9% 1,000 ML IV SCH (09:16)
[2022-12-14 12:00] VITALS: BP 132/69
[2022-12-14] MEDS ORDERED: SEVOFLURANE 250 ML BTL INH ONE (12:41)
[2022-12-14] MEDS: THERAHONEY GEL 42.5 GM TP SCH (13:00)
[2022-12-14] MEDS ORDERED: hydrALAZINE 20 MG/ML VIAL IVP PRN (13:29)
[2022-12-14] MEDS ORDERED: NACL 0.9% 1,000 ML IV SCH (13:30)
[2022-12-14] MEDS ORDERED: BLOOD GLUCOSE MONITORING 1 DEV DEV FS SCH (13:30)
[2022-12-14] MEDS ORDERED: ONDANSETRON 4 MG/2 ML VIAL IVP PRN (13:30)
[2022-12-14] MEDS: NACL 0.9% 1,000 ML IV SCH ×2 (15:25→23:30)
[2022-12-14 16:00] VITALS: BP 128/50
[2022-12-14 20:00] VITALS: BP 141/54
--- NOTE | 2022-12-14 20:44 | NUR ---
SCHEDULED DUE MEDICATION ADMINISTERED. PATIENT AWAKE WITH EYES OPEN. TRACH TO T-BAR. NO S/S OF RESPIRATORY DISTRESS. BREATHING EVEN UNLABORED. ETIENNE CATHETER BAG LEAKING, CHANGED. ALL SAFETY PRECAUTIONS ARE IN PLACE. CALL LIGHT WITHIN REACH.
[2022-12-15] VITALS: BP 110/62
[2022-12-15] MEDS: GAUZE TP SCH ×2 (01:49→11:40)
[2022-12-15 04:00] VITALS: BP 126/54
[2022-12-15] MEDS: MEROPENEM 1,000 MG in NACL 0.9% 50 ML IV SCH ×3 (05:06→21:58)
--- NOTE | 2022-12-15 07:17 | NUR ---
GERALDINE REPORT TO DAY SHIFT NURSE GENET FOR CONTINUITY OF CARE. PATIENT STABLE.
[2022-12-15] MEDS: LEVOTHYROXINE 0.1 MG TAB PO SCH (07:25)
--- NOTE | 2022-12-15 07:30 | NUR ---
RECEIVED REPORT FROM ENVIRONMENTAL SERVICES PROJECT MANAGER NURSE FOR CONTINUITY OF CARE, POC DISCUSSED. DEBRIDEMENT COMPLETED 12/14/2022. PT TBAR ON 6L. PT O2 SATURATIONS AT 94%, PT ON TELE MONITOR SHOWING SR. ALL SAFETY MEASURES IN PLACE, CALL LIGHT WITHIN REACH. WILL CONTINUE TO MONITOR.
[2022-12-15 08:00] VITALS: BP 139/65
[2022-12-15] MEDS: FERROUS GLUCONATE 324 MG TAB PO SCH ×2 (08:11→16:24)
[2022-12-15] MEDS: LACTULOSE 20 GM/30 ML UDC PO SCH (08:12)
[2022-12-15] MEDS: NACL 0.9% 1,000 ML IV SCH ×2 (08:20→16:24)
--- NOTE | 2022-12-15 08:20 | NUR ---
GOT REPORT FROM THE NIGHT NURSE, PT AWAKE NO SOB [email or web address]
--- NOTE | 2022-12-15 08:49 | NUR ---
SAM MEDICATION ADMINISTERED PER MD ORDER, PT TOLERATED ADMINISTRATION. 15 CC RESIDUAL, FLUSHED PRIOR TO AND AFTER ADMINISTRATION. PRN TYLENOL ADMINISTERED PER MD ORDER, FOR FEBILE OF 101.8. O2 SATURATIONS AT 94%. MORNING ASSESSMENT COMPLETE. RIGHT HEEL SCAB NOTED.
--- NOTE | 2022-12-15 10:50 | NUR ---
PT IS STABLE IN BED ON TRACH TO TBAR AT 6L, O2 SATURATIONS AT 96%. NO S/S OF RESP DISTRESS, CHEST RISING AND FALLING EVEN AND UNLABORED. ON TELE MONITOR. ALL SAFETY MEASURES IN PLACE, CALL LIGHT WITHIN REACH. WILL CONTINUE TO MONITOR.
[2022-12-15 12:00] VITALS: BP 144/64
[2022-12-15] MEDS: HYDROCOLLOID DRESSING TP SCH (13:30)
[2022-12-15] MEDS: THERAHONEY GEL 42.5 GM TP SCH (13:31)
--- NOTE | 2022-12-15 15:28 | NUR ---
12/15/22 RD FOLLOW UP COMPLETED PLEASE REFER TO NUTRITION ASSESSMENT UNDER CARE ACTIVITY FOR ESTIMATED NUTRITIONAL NEEDS. 1. RECOMMEND INCREASING GLUCERNA 1.2 TO 40 ML/HR GOAL RATE TO OPTIMIZE NUTRITIONAL NEEDS, FWF 100 ML Q4H TOLERATED OR PER MD 2. RECOMMEND CONTINUE PROSOURCE BID FOR WOUND SUPPORT (PROVIDES 120 KCAL AND 30 GRAM PROTEIN DAILY) - WITH PROSOURCE BID AND GLUCERNA 1.2 @ 40 ML/HR GOAL RATE, PT WILL RECEIVE 960 ML TOTAL VOLUME, 1272 KCAL, 88 GM PROTEIN, AND 1373 ML FREE WATER, MEETING 97% ESTIMATED ENERGY NEEDS AND 100% ESTIMATED PROTEIN NEEDS; ADEQUATE. 3. RD TO FOLLOW-UP 3-5 DAYS, MODERATE RISK REVIEWED BY FRANK MIRANDA RD
--- NOTE | 2022-12-15 15:56 | NUR ---
WOUND DRESSING CHANGED, BM NOTED. ON TELE MONITOR, NO S/S OF DISTRESS
[2022-12-15 16:00] VITALS: BP 145/70
--- NOTE | 2022-12-15 18:49 | NUR ---
NEW TUBE FEEDING STARTED. ALL NEEDS HAVE BEEN MET, PT IS STABLE. POC WILL BE DISCUSSED AND ENDORSED TO IDENTIFICATION OFFICER NURSE.
--- NOTE | 2022-12-15 19:25 | NUR ---
RECEIVED ENDORSEMENT FROM GENET RN, PATIENT WAS STABLE DURING SHIFT REPORT. PATIENT WAS NOTED ASLEEP AND NOT ORIENTED. AR TECH PATIENT SATURATION WAS NOTED WELL. PATIENT IS ON GTUBE FEED AND HEAD OF BED IS ELEVATED FOR PREVENTION OF ASPIRATION. ETIENNE DRAINAGE IS YELLOW AND NO NOTED SEDIMENT. NO S/S OF PAIN/DISCOMFORT AT THIS TIME. PATIENT WAS KEPT CLEAN AND DRY AT THIS TIME. CALL LIGHT WITHIN REACH BED AT THE LOWEST LEVEL FOR SAFETY SIDE RAILS UP X 3 FOR AND SAFETY. NURSING WILL FREQUENT THE ROOM IN ANTICIPATION OF NEEDS. [email or web address]
[2022-12-15 22:00] VITALS: BP 152/54
--- NOTE | 2022-12-15 23:48 | NUR ---
PATIENT IN BED SLEEPING. PATIENT WAS CLEANED, WOUND CARE AND SUCTIONING WAS PERFORMED. REPOSITIONED PATIENT TO THE RIGHT SIDE, NO SIGNS OR SYMPTOMS OF DISTRESS NOTED AT THIS TIME. BED RAILS UP X2, BED LOWERED TO LOWEST POINT, WILL CONTINUE TO MONITOR.
[2022-12-16] VITALS: BP 119/49
[2022-12-16] MEDS: GAUZE TP SCH ×2 (00:31→13:25)
--- NOTE | 2022-12-16 03:03 | NUR ---
PATIENT FOUND ASLEEP IN SEMI FOWLERS POSITION WITH A MODERATE AMOUNT OF SECRETIONS DRAINING FROM HER MOUTH. WOKE THE PATIENT TO PERFORM SUCTIONING. IVF WAS REPLACED AND NO SIGNS OF DISTRESS WERE NOTED AT THIS TIME, WILL CONTINUE TO MONITOR.
[2022-12-16 04:00] VITALS: BP 138/60
[2022-12-16] MEDS: MEROPENEM 1,000 MG in NACL 0.9% 50 ML IV SCH ×2 (05:17→13:26)
[2022-12-16] MEDS: NACL 0.9% 1,000 ML IV SCH ×2 (05:30→15:30)
--- NOTE | 2022-12-16 06:01 | NUR ---
PATIENT REPOSITIONED FOR WOUND CARE DRESSING CHANGE. NURSING NOTED DIAPER WAS WET WITH URINE AND PATIENT HAS A ETIENNE CATH. PATIENT KEPT CLEAN AND DRY. SIDE RAILS X 3 FOR SAFETY. CALL LIGHT WITHIN REAWCH FOR MENTAL STIMULATION. [email or web address]
[2022-12-16] MEDS: LEVOTHYROXINE 0.1 MG TAB PO SCH (06:22)
--- NOTE | 2022-12-16 07:24 | NUR ---
ENDORSED PATIENT TO ADZE RN, PATIENT WAS STABLE DURING SHIFT REPORT. [email or web address]
[2022-12-16 08:00] VITALS: BP 128/51
[2022-12-16] MEDS ORDERED: SYN.1 PO (08:57)
[2022-12-16] MEDS ORDERED: MERO1PIG IV (08:57)
[2022-12-16] MEDS ORDERED: FERR324T11 PO (08:57)
[2022-12-16] MEDS: FERROUS GLUCONATE 324 MG TAB PO SCH ×2 (09:00→17:00)
[2022-12-16] MEDS: LACTULOSE 20 GM/30 ML UDC PO SCH (09:19)
--- NOTE | 2022-12-16 09:35 | NUR ---
WOUND CARE RE-EVALUATION NOTE: SACRALCOCCYX S/P DEBRIDEMENT WOUND ASSESSMENT DONE WITH ARYAN FORD, ASSOCIATED WITH DR. CARTER.,NO NEW ORDER GIVEN. -PRESSURE INJURY STAGE 2 3X4CM SUPERFICIAL DEPTH, WOUND BED 100% PINK, DRY, NO ODOR, RAVEN WOUND SKIN INTACT -PRESSURE INJURY UN-STAGEABLE SACRALCOCCYX S/P SURGICAL WOUND, WOUND BED [id number] 100% YELLOW,SLOUGH TISSUE, TUNNEL 2CM DEEP ODOR, RAVEN WOUND SKIN MOIST SURROUNDING NON-BLANCHABLE REDNESS INDICATED FURTHER DAMAGE -PRESSURE INJURY UN-STAGEABLE TO RIGHT HEEL 1.5X1CM 100% BLACK ESCHAR TISSUE, RAVEN WOUND SKIN NON-BLANCHABLE REDNESS, MUSHY, FURTHER DAMAGE INDICATED -RIGHT WRIST SKIN TEAR 0.5X1CM SUPERFICIAL DEPTH, MOIST, NO ODOR, RAVEN-WOUND SKIN DRY INTACT.
[2022-12-16] MEDS ORDERED: ERTA1VIA2 IV (10:51)
--- NOTE | 2022-12-16 11:47 | NUR ---
DC PLANNING: [place] [facility] [place] NUMBER. CM TO FOLLOW Addendum: 12/16/22 at 1322 by Dominique Goodrich RN DC PLANNING: [place] [facility] [place]CAN GO TO ROOM [facility] # TO GIVE REPORT [phone] ARRANGED TRANSPORT WITH [facility] TRANSPORT PSYCHODRAMATIST TIME 1600. CM TO FOLLOW
[2022-12-16 12:00] VITALS: BP 138/48
[2022-12-16] MEDS: THERAHONEY GEL 42.5 GM TP SCH (13:26)
[2022-12-16 15:39] VITALS: BP 138/60
[2022-12-16 16:00] VITALS: BP 136/43
--- NOTE | 2022-12-16 16:11 | NUR ---
OUTREACHED TO [facility], TO FOLLOW UP ON P/UP FOR PT. SPOKE WITH [facility] WHO REPORTS P/UP TIME ARRANGED FOR 6:30 PM. ENDORSED TO PT NURSE.
--- NOTE | 2022-12-16 19:00 | NUR ---
[facility]. report given to Eileen ASH. stable upon discharge
== END 2022-12-16 18:55 | DRG 356 ==
LOC: MED 18:02 → MTU 19:31 → MMU 12-08 15:45
PROVIDERS: ADMIT Internal Medicine; ATTEND Internal Medicine
PROC: 30233N1 Transfusion of Nonautologous Red Blood Cells into Peripheral Vein, Percutaneous Approach (ICD-10-PCS; 2022-12-07)
PROC: 0DBK8ZX Excision of Ascending Colon, Via Natural or Artificial Opening Endoscopic, Diagnostic (ICD-10-PCS; 2022-12-14)
PROC: 0JB70ZZ Excision of Back Subcutaneous Tissue and Fascia, Open Approach (ICD-10-PCS; principal; 2022-12-14 12:30)
DX: K55.9 Vascular disorder of intestine, unspecified (principal); E43 Unspecified severe protein-calorie malnutrition; J90 Pleural effusion, not elsewhere classified; J96.10 Chronic respiratory failure, unspecified whether with hypoxia or hypercapnia; Q43.8 Other specified congenital malformations of intestine; I95.9 Hypotension, unspecified; L89.90 Pressure ulcer of unspecified site, unspecified stage; E11.9 Type 2 diabetes mellitus without complications; Z68.23 Body mass index [BMI] 23.0-23.9, adult; E87.5 Hyperkalemia; R13.10 Dysphagia, unspecified; F20.9 Schizophrenia, unspecified; Z20.822 Contact with and (suspected) exposure to COVID-19; Z88.1 Allergy status to other antibiotic agents; Z91.012 Allergy to eggs; D50.0 Iron deficiency anemia secondary to blood loss (chronic)
CPT/HCPCS: 36415; 36430; 71045; 74018; 80048; 80053; 80305; 81001; 82140; 82150; 83036; 83605; 83690; 83735; 83880; 84100; 84439; 84443; 84484; 85025; 85610; 85730; 86886; 86900; 86901; 86920; 87040; 87081; 87086; 88304; 88305; 93005; 99291; C9113; J0696; J1200; J2001; J2185; J2250; J3010; J7030; J7060; P9016; Q0092